=== PATIENT | male | born 1955 | race Caucasian/White ===

== ENCOUNTER 2018-12-18 15:38 | Emergency (ER) | payer OTHER ==
[~2018-12-18] VITALS: Ht 165.1 cm; Wt 73.1 kg
[~2018-12-18 15:38] MED LIST: HYDR-3498 PO; NAPR-985 PO
[2018-12-18 15:39] VITALS: Ht 165.1 cm; Wt 73.1 kg
[2018-12-18] MEDS ORDERED: SOD CHLORIDE 0.9% 1,000 ML IV STA (16:02)
[2018-12-18] MEDS ORDERED: KETOROLAC 15 MG INJ IV STA (16:02)
--- NOTE | 2018-12-18 16:29 | ERD ---
ER Documentation Chief Complaint Chief Complaint BACK OF HEAD PAIN X 2 DAYS. ALSO C/O DIARRHEA. HTN IN TRIAGE HPI 63-year-old gentleman who presents to the emergency room with a myriad of different complaints over approximately 2-week timeframe. He describes intermittent loose watery stools, he has a gradual onset bandlike throbbing headache. He has not been taking any Tylenol or Motrin. He denies any chest pain or shortness of breath, no exertional symptoms. Blood pressure was elevated in triage. During the patient's encounter translation services were utilized Language: [place] Source: In person ROS All systems reviewed and are negative except as per history of present illness. Medications Home Meds Reported Medications Aspirin* (Aspirin* EC) 81 Mg Tablet.dr, 81 MG PO DAILY, TAB 12/18/18 Atorvastatin Calcium* (Atorvastatin Calcium*) 20 Mg Tablet, 20 MG PO QHS, #30 TAB 12/18/18 Trazodone Hcl* (Trazodone Hcl*) 50 Mg Tablet, 50 MG PO QHS, #30 TAB 12/18/18 Discontinued Scripts Hydrocodone Bit-Acetaminophen* (Garfield*) 5-325 Mg Tab, 1 TAB PO Q6 PRN for PAIN, #7 TAB Prov:JAMAL WALDRON DO 04/19/15 Naproxen* (Naprosyn*) 500 Mg Tablet, 500 MG PO BID PRN for PAIN AND/OR INFLAMMA TION, #14 TAB Prov:JAMAL WALDRON DO 04/19/15 Allergies Allergies: Coded Allergies: No Known Allergy (Unverified , 12/18/18) PMhx/Soc History of Surgery: No Anesthesia Reaction: No Hx Neurological Disorder: No Hx Respiratory Disorders: No Hx Cardiac Disorders: Yes (HIGH CHOLESTEROL ) Hx Psychiatric Problems: No Hx Miscellaneous Medical Probl: No Hx Alcohol Use: No Hx Substance Use: No Hx Tobacco Use: No Smoking Status: Never smoker FmHx Family History: No diabetes Physical Exam Vitals Vital Signs Date Temp Pulse Resp B/P (MAP) Pulse Ox O2 O2 Flow FiO2 Time Delivery Rate 12/18/18 98.1 78 18 156/87 99 Room Air 18:00 (110) 12/18/18 76 18 152/91 99 Room Air 16:08 (111) 12/18/18 98.6 78 18 180/101 99 15:39 (127) Physical Exam General: Well developed, well nourished, no acute distress Head: Normocephalic, atraumatic. Eyes: Pupils equally reactive, EOM intact ENT: Moist mucous membranes Neck: Supple, no lymphadenopathy Respiratory: Lungs clear bilaterally, no distress Cardiovascular: RRR, no murmurs, rubs, or gallops Abdominal: Soft, non-tender, non-distended, no peritoneal signs : Deferred MSK: No edema, no unilateral swelling, 5/5 strength Neurologic: Alert and oriented, moving all extremities, normal speech, no focal weakness, no cerebellar signs Skin: No rash Psych: Normal mood Result Diagram: 12/18/18 1607 12/18/18 1607 Results 24 hrs Laboratory Tests Test 12/18/18 16:07 White Blood Count 5.0 10^3/ul Red Blood Count 4.78 10^6/ul Hemoglobin 14.2 g/dl Hematocrit 41.6 % Mean Corpuscular Volume 87.0 fl Mean Corpuscular Hemoglobin 29.7 pg Mean Corpuscular Hemoglobin Concent 34.1 g/dl Red Cell Distribution Width 13.0 % Platelet Count 196 10^3/UL Mean Platelet Volume 9.3 fl Immature Granulocytes % 0.200 % Neutrophils % 73.4 % Lymphocytes % 14.7 % Monocytes % 9.7 % Eosinophils % 1.6 % Basophils % 0.4 % Nucleated Red Blood Cells % 0.0 /100WBC Immature Granulocytes # 0.010 10^3/ul Neutrophils # 3.7 10^3/ul Lymphocytes # 0.7 10^3/ul Monocytes # 0.5 10^3/ul Eosinophils # 0.1 10^3/ul Basophils # 0.0 10^3/ul Nucleated Red Blood Cells # 0.0 10^3/ul Sodium Level 137 mmol/L Potassium Level 3.9 mmol/L Chloride Level 102 mmol/L Carbon Dioxide Level 24 mmol/L Anion Gap 11 Blood Urea Nitrogen 16 mg/dl Creatinine 0.73 mg/dl Est Glomerular Filtrat Rate mL/min > 60 mL/min Glucose Level 115 mg/dl Calcium Level 9.2 mg/dl Current Medications Medications Dose Sig/Georgina Start Time Status Last (Trade) Ordered Route PRN Stop Time Admin Dose Reason Admin Sodium 1,000 ml @ Q1H STAT 12/18/18 DC 12/18/18 Chloride 1,000 mls/hr IV 16:02 16:12 12/18/18 17:01 Ketorolac 15 mg ONCE STAT 12/18/18 DC 12/18/18 Tromethamine IV 16:02 16:12 (Toradol) 12/18/18 16:03 Procedures/MDM LAB INTERPRETATION: I reviewed the laboratory testing and it shows no evidence of acute process MEDICAL DECISION MAKING: The patient's headache is unlikely related to serious etiology. The patient does not exhibit any clinical signs or symptoms, and has no risk factors to suggest headache etiology such as subarachnoid hemorrhage, acute vertebral or carotid dissection, intracranial mass, epidural, subdural hematoma, dural venous sinus thrombosis, giant cell arteritis, or pseudotumor cerebri. The patient symptoms are very nonspecific possibly secondary to mild dehydration. He exhibits no signs or symptoms concerning for clinically significant intracranial process. I do not believe CT imaging of the head is necessary. Patient has a benign abdominal exam. No signs or symptoms concerning for cardiac etiology. ER COURSE: * Patient given IV fluids and continues to be well-appearing, laboratory testing is unremarkable. The patient can be safely discharged home with symptom control. Patient does not have evidence of acute emergent medical condition. * Repeat abdominal exam benign. CONSULTATION: None DISPOSITION PLAN: The patient does not have an identifiable emergent medical condition that warrants inpatient hospitalization at this time. The patient is deemed safe for discharge with outpatient follow-up. We discussed follow up with the patient's primary care doctor within 24 to 48 hours as needed. We also discussed return to the emergency room for worsening symptoms or worsening condition. Outpatient referral: None required Departure Diagnosis: Primary Impression: Diarrhea Diarrhea type: unspecified type Qualified Codes: R19.7 - Diarrhea, unspeci fied Additional Impression: Tension headache Condition: Stable NEHEMIAS ZHAO MD Dec 18, 2018 16:29
[2018-12-18] MEDS ORDERED: TRAZ-111 PO (16:45)
[2018-12-18] MEDS ORDERED: ATOR20TA38 PO (16:46)
[2018-12-18] MEDS ORDERED: ASPI-817 PO (16:46)
[2018-12-18 18:00] VITALS: BP 156/87; PULSE 78; RESP 18
== END 2018-12-18 18:05 | disposition home or self-care (01) ==
LOC: E/R 15:38
DX: G44.209 Tension-type headache, unspecified, not intractable (principal); R19.7 Diarrhea, unspecified; Z79.82 Long term (current) use of aspirin
CPT/HCPCS: 80048; 85025; 96361; 96374; J1885; J7030; Z7502